=== PATIENT | female | born 1945 | race Caucasian/White ===

== ENCOUNTER 2016-12-23 10:11 | Outpatient (CLI) | payer OTHER ==
--- NOTE | 2016-12-23 10:39 | DIAGNOSTIC IMAGING REPORT ---
PROCEDURE: DEXA BONE DENSITY STUDY CLINICAL INDICATION: SCREENING COMPARISON: None. FINDINGS: LUMBAR SPINE: Bone mineral density 1.391 g/cm2, T score 3.1 normal LEFT HIP: Bone mineral density 1.154 g/cm2, T score 1.7 normal LEFT FEMORAL NECK: Bone mineral density 1.011 g/cm2, T score 1.5 normal FRACTURE RISK CALCULATION ( when applicable): 10-year fracture risk of a major osteoporotic fracture and of a hip fracture not reported because all T-scores at or above -1.0 (T score greater or equal to -1.0 to: NORMAL) (T score from -1.1 to -2.4: OSTEOPENIA) (T score ess than or equal to -2.5: OSTEOPOROSIS) IMPRESSION: 1. Normal spine hip and femoral neck
== END 2016-12-23 23:00 ==
LOC: XR SRH 10:11
DX: Z13.820 Encounter for screening for osteoporosis (principal)